=== PATIENT | female | born 1970 | race Caucasian/White ===

== ENCOUNTER → 2018-02-22 | Outpatient (REF) ==
[~2018-02-22] MED LIST: ADDERALL10 MG OR; ADVAIR DISK1 INH; ADVAIR DISKU; AMOX/K CLAV875 M1 PO; AMOXICILLIN500 MG PO; ATENOLOL25 MG PO; AUGMENTIN875 MG PO; AUGMENTIN875TAB OR; AVALIDE1 TAB PO; B COMPLEX +C PO; B12 LIQUID OR; BUSPAR10 M1 OR; CEFDINIR300 MG PO; CEPHALEXIN500 MG OR; CIPRO500 MG PO; CIPROFLOXACN500 MG PO; DEPO-MEDROL80 MG/ML IM; DILAUDID 2MG2 MG/TAB PO; DOXYCYCL HYC100 MG PO; EMERGEN C VITAM PO; IBUPROFEN800 MG PO; LEVAQUIN500 MG PO; LORTAB 5 OR; LORTAB 5/3255 MG PO; MEDDOSEPAK OR; MEDDOSEPAK PO; METO50TA52 PO; METOPROLOL TART50 MG PO; MULTIVITAMIN OR; OMEGA 31200 MG PO; PERCOCET 10/31 COMBO PO; PERCOCET 5/325M1 TAB PO; ROCEPHIN 2250 MG/VIA IM; SINUCLEANS1 NAB; TOPROL XL25 M1 OR; ULTRAM50 M1 PO; VENTOLIN HF1; VITAMIN C500 M4 OR; XYZAL5 MG PO; ZITHROMAX500 MG PO; ZOVIRAX51 EX; ZPAK PO; ZYRTEC-D AL1 OR; [UNRECOGNIZED DRUG - CODE] IN
== END | disposition home or self-care (01) | DRG 761 ==
LOC: LAB 12:36
PROVIDERS: ATTEND Obstetrics & Gynecology
DX: N95.9 Unspecified menopausal and perimenopausal disorder (principal); R53.83 Other fatigue

== ENCOUNTER 2018-04-03 17:45 | Emergency (ER) | payer BC ==
[~2018-04-03] VITALS: Ht 167.6 cm; Wt 73.2 kg
[2018-04-03] MEDS ORDERED: PREDNISONE50 MG PO ×2 (18:09→19:17)
[2018-04-03] MEDS ORDERED: CEPHALEXIN500 M1 PO ×2 (18:09→19:17)
[2018-04-03] MEDS ORDERED: EPIPEN 2-P0.3 MG/0.3 IM ×2 (18:09→19:17)
[2018-04-03 19:35] VITALS: BP 136/87
== END 2018-04-03 19:30 | disposition home or self-care (01) | DRG 918 ==
LOC: ED 17:45
DX: T63.461A Toxic effect of venom of wasps, accidental (unintentional), initial encounter (principal); L29.9 Pruritus, unspecified